=== PATIENT | female | born 1970 | race Caucasian/White ===

== ENCOUNTER → 2016-11-02 | Outpatient (CLI) | payer OTHER, MEDICARE | LOC: HEART 5 14:00 | DX: I42.9 Cardiomyopathy, unspecified (principal) | CPT/HCPCS: 93306 ==

== ENCOUNTER 2016-11-12 10:58 | Emergency (ER) | payer MEDICARE, OTHER ==
[2016-11-12 12:16] LABS: HEMOGLOBIN 11.3 gm/dl (12.3-15.3); RED BLOOD COUNT 4.23 M/UL (4.00-5.10); WHITE BLOOD COUNT 14.5 K/UL (4.5-11.0)
[2016-11-12 12:27] LABS: BUN/CREATININE RATIO 33 (0-10)
== END 2016-11-12 15:20 ==
LOC: ER1 10:58
PROVIDERS: Emergency Medicine
DX: S71.002A Unspecified open wound, left hip, initial encounter (principal); S31.829A Unspecified open wound of left buttock, initial encounter; S71.102A Unspecified open wound, left thigh, initial encounter; E66.9 Obesity, unspecified; D72.829 Elevated white blood cell count, unspecified; I48.91 Unspecified atrial fibrillation; Z86.79 Personal history of other diseases of the circulatory system; X58.XXXA Exposure to other specified factors, initial encounter
CPT/HCPCS: 36415; 80053; 85025; 86140; 87040; 99284